=== PATIENT | male | born 1975 | race Caucasian/White ===

== ENCOUNTER 2016-10-01 09:51 | Emergency (ER) | payer MEDICAID ==
[2016-10-01] MEDS ORDERED: ONDANSETRON HCL IV 4 MG/2 ML VIAL IV ONE (10:20)
[2016-10-01] MEDS ORDERED: 0.9 % SODIUM CHLORIDE 1,000 ML BAG IV ONE (10:20)
[2016-10-01 10:34] LABS: BASO % 0.2 % (0-6); EOS % 1.9 % (0-6); GRAN % 56.9 % (47-80); HEMATOCRIT 44.7 % (42.0-52.0); HEMOGLOBIN 14.9 gm/dl (14.0-18.0); LYMPH % 31.3 % (16-45); MEAN CELL VOLUME 87.6 fl (81-97); MEAN CORPUSCULAR HEMOGLOBIN 29.2 pg (27-33); MEAN CORPUSCULAR HGB CONC 33.3 g/dl (32-36); MEAN PLATELET VOLUME 10.2 fl (7.4-10.4); MONO % 9.7 % (0-9); PLATELET COUNT 371 K/uL (130-400); RED CELL DISTRIBUTION WIDTH 13.3 % (11.5-14.5); WHITE BLOOD COUNT W/O DIFF 10.5 K/uL (4.2-12.2)
[2016-10-01 10:46] LABS: ANION GAP 5.3 (7-16); BLOOD UREA NITROGEN 16 mg/dL (9-20); CARBON DIOXIDE 29.7 mmol/L (22-30); CREATININE 0.9 mg/dL (0.66-1.25); EST GLOMERULAR FILTRATION RATE > 60 ml/min; GLUCOSE,RANDOM 132 mg/dL (70-110)
--- NOTE | 2016-10-01 10:48 | Emergency Department Record ---
History of Present Illness - General Chief complaint: Dental Stated complaint: BLEEDING FROM TONSILS Time Seen by Provider: 10/01/16 10:16 Source: Patient, RN notes reviewed - History of Present Illness Initial comments: Patient had an asthma atack and start coughing and coughed up blood. He had a Tand A done 5 days ago at [facility] and his right tonsil was bleeding and where the blood was coming from. His inhaler at home helped his breathing. No active bleeding now but he has a clot on the right tonsil. Onset/Timin -: Minutes(s) Improves with: None Worsens with: None - Related Data Home Medications Medication Instructions Recorded Confirmed Last Taken Citalopram Hydrobromide [Celexa] 40 mg PO QD tab 10/12/15 10/01/16 10/01/16 Lisinopril 40 mg PO QD tab 10/12/15 10/01/16 10/01/16 Amoxicillin [Amoxil] 20 ml PO Q8H 10/01/16 10/01/16 10/01/16 Cholecalciferol (Vitamin D3) 1,000 unit PO DAILY 10/01/16 10/01/16 09/30/16 [Vitamin D3] Docusate Sodium [Colace] 100 mg PO DAILY 10/01/16 10/01/16 09/24/16 Fluticasone Propionate [Flonase] 2 spray EACH NARES DAILY 10/01/16 10/01/16 Oxycodone HCl 10 mg PO Q4H 10/01/16 10/01/16 10/01/16 Trazodone HCl 50 mg PO QHS PRN 10/01/16 10/01/16 Unknown Allergies Allergy/AdvReac Type Severity Reaction Status Date / Time acetaminophen [From [place]] AdvReac HYPERSENSIT Verified 02/17/15 15:12 IVITY hydrocodone bitartrate AdvReac HYPERSENSIT Verified 02/17/15 15:12 [From [place]] IVITY Opioids - Morphine Analogues AdvReac RAPID Verified 10/27/15 13:18 HEART RATE Travel Screening - Travel/Exposure Within Last 30 Days Have you traveled within the last 30 days?: No - Travel/Exposure Within Last Year Have you traveled outside the [place] in the last year?: No - Additonal Travel Details Have you been exposed to anyone with a communicable illness?: No - Travel Symptoms Symptom Screening: None Review of Systems Reviewed: No additional complaints except as noted below Constitutional: Reports: As per HPI. Denies: Chills, Fever, Malaise, Night sweats, Weakness, Weight change Eyes: Reports: As per HPI. Denies: Eye discharge, Eye pain, Photophobia, Vision change ENT: Reports: As per HPI. Denies: Congestion, Dental pain, Ear pain, Epistaxis , Hearing loss, Throat pain Respiratory: Reports: As per HPI. Denies: Cough, Dyspnea, Hemoptysis, Stridor, Wheezes Cardiovascular: Reports: As per HPI. Denies: Arrhythmia, Chest pain, Dyspnea on exertion, Edema, Murmurs, Orthopnea, Palpitations, Paroxysmal nocturnal dyspnea, Rheumatic Fever, Syncope Endocrine: Reports: As per HPI. Denies: Fatigue, Heat or cold intolerance, Polydipsia, Polyuria Gastrointestinal: Reports: As per HPI. Denies: Abdominal pain, Constipation, Diarrhea, Hematemesis, Hematochezia, Melena, Nausea, Vomiting Genitourinary: Reports: As per HPI. Denies: Dysuria, Frequency, Hematuria, Incontinence, Retention, Testicular pain, Testicular mass, Urgency Musculoskeletal: Reports: As per HPI. Denies: Arthralgia, Back pain, Gout, Joint swelling, Myalgia, Neck pain Skin: Reports: As per HPI. Denies: Bruising, Change in color, Change in hair/ nails, Lesions, Pruritus, Rash Neurological: Reports: As per HPI. Denies: Abnormal gait, Confusion, Headache, Numbness, Paresthesias, Seizure, Tingling, Tremors, Vertigo, Weakness Psychiatric: Reports: As per HPI. Denies: Anxiety, Auditory hallucinations, Depression, Homicidal thoughts, Suicidal thoughts, Visual hallucinations Hematological/Lymphatic: Reports: As per HPI. Denies: Anemia, Blood Clots, Easy bleeding, Easy bruising, Swollen glands Past Medical History - SOCIAL HISTORY Smoking Status: Never smoker Alcohol Use: Rare Drug Use: None - RESPIRATORY Hx Respiratory Disorders: No Hx Asthma: Yes - CARDIOVASCULAR Hx Cardio Disorders: No Hx Hypertension: Yes - NEURO Hx Neuro Disorders: No - GI Hx GI Disorders: No - Hx Genitourinary Disorders: No - ENDOCRINE Hx Endocrine Disorders: No - MUSCULOSKELETAL Hx Musculoskeletal Disorders: No - PSYCH Hx Psych Problems: Yes Hx Anxiety: Yes Hx Depression: Yes - HEMATOLOGY/ONCOLOGY Hx Hematology/Oncology Disorders: No Family Medical History Any Significant Family History?: No Hx Alcohol Use: Grandparents Hx Diabetes: Father, Mother Hx HTN: Mother Physical Exam - General General Appearance: Alert, Oriented x3, Cooperative, No acute distress - Head Head exam: Normal inspection - Eye Eye exam: Normal appearance, PERRL Pupils: Normal accommodation - ENT ENT exam: Normal exam, Mucous membranes moist, Normal external ear exam, Normal orophraynx, TM's normal bilaterally Ear exam: Normal external inspection. negative: External canal tenderness Nasal Exam: Normal inspection. negative: Discharge, Sinus tenderness Mouth exam: Normal external inspection, Tongue normal Teeth exam: Normal inspection. negative: Dental caries Throat exam: Other (clot on the right tonsil , No active bleeding). negative: Tonsillar erythema, Tonsillar exudate - Neck Neck exam: Normal inspection, Full ROM. negative: Tenderness - Respiratory Respiratory exam: Normal lung sounds bilaterally. negative: Respiratory distress - Cardiovascular Cardiovascular Exam: Regular rate, Normal rhythm, Normal heart sounds - GI/Abdominal GI/Abdominal exam: Soft, Normal bowel sounds. negative: Tenderness - Rectal Rectal exam: Deferred - exam: Deferred - Extremities Extremities exam: Normal inspection, Full ROM, Normal capillary refill. negative: Tenderness - Back Back exam: Reports: Normal inspection, Full ROM. Denies: Muscle spasm, Rash noted, Tenderness - Neurological Neurological exam: Alert, Normal gait, Oriented X3, Reflexes normal - Psychiatric Psychiatric exam: Normal affect, Normal mood - Skin Skin exam: Dry, Intact, Normal color, Warm Course Vital Signs 10/01/16 10:28 Temperature 97.9 F Pulse Rate [ 59 L Pulse Ox Probe] Respiratory 20 Rate Blood Pressure 90/64 [Left Arm] Pulse Ox 96 - Reevaluation(s) Reevaluation #1: No active bleeding and he feels much better and his hg is 14.9 10/01/16 11:44 10/01/16 11:45 Medical Decision Making - Lab Data Result diagrams: 10/01/16 10:10 10/01/16 10:10 Lab Results 10/01/16 Range/Units 10:10 WBC 10.5 (4.2-12.2) K/uL RBC 5.10 (4.40-5.70) M/uL Hgb 14.9 (14.0-18.0) gm/dl Hct 44.7 (42.0-52.0) % MCV 87.6 (81-97) fl MCH 29.2 (27-33) pg MCHC 33.3 (32-36) g/dl RDW 13.3 (11.5-14.5) % Plt Count 371 (130-400) K/uL MPV 10.2 (7.4-10.4) fl Gran % 56.9 (47-80) % Lymphocytes % 31.3 (16-45) % Monocytes % 9.7 H (0-9) % Eosinophils % 1.9 (0-6) % Basophils % 0.2 (0-6) % Disposition Clinical Impression: Hemorrhage of right tonsil, History of tonsillectomy Asthma Qualifiers: Asthma severity: mild intermittent Asthma complication type: with acute exacerbation Qualified Code(s): J45.21 - Mild intermittent asthma with (acute) exacerbation Disposition: Home, Self-Care Condition: (1) Good Instructions: Wound Dehiscence (ED) Additional Instructions: if more bleeding return to ED or go to ENT Dr. follow up with ENT in 5-6 days soone rif more bleeding Forms: Patient Portal Access Time of Disposition: 11:53
[2016-10-01] MEDS ORDERED: 0.9 % SODIUM CHLORIDE 1000ML 1,000 ML IV ONE (11:14)
== END 2016-10-01 12:03 | disposition home or self-care (01) ==
LOC: ER 09:51
DX: K91.840 Postprocedural hemorrhage of a digestive system organ or structure following a digestive system procedure (principal); J45.21 Mild intermittent asthma with (acute) exacerbation; Y83.8 Other surgical procedures as the cause of abnormal reaction of the patient, or of later complication, without mention of misadventure at the time of the procedure
CPT/HCPCS: 99284 ×2; 96374; 96361; 85025; 80048; J2405; J7030

== ENCOUNTER 2017-08-16 10:46 | Emergency (ER) | payer MEDICAID ==
[2017-08-16] MEDS ORDERED: MECLIZINE 25 MG TABLET PO ONE (10:55)
[2017-08-16] MEDS ORDERED: ONDANSETRON 4 MG ODT TABLET SL ONE (10:55)
--- NOTE | 2017-08-16 11:02 | Emergency Department Record ---
History of Present Illness - General Chief Complaint: Abdominal Pain Stated Complaint: DIZZY/ABDOMINAL PAIN Time Seen by Provider: 08/16/17 10:48 Source: Patient, Family Mode of Arrival: Ambulatory Limitations: No limitations - History of Present Illness Initial Comments: 42 yo male presents with about one hour of a room spinning sensation. He states he was sitting on the cough and turned his head to talk to his kids and developed a room spinning sensation with nausea. No headache, vision changes, speech changes, coordination changes, mental status changes. He states if he sits still the symptoms resolve only to return with head turning. No history of the same. No recent changes in his health or his medications. MD Complaint: Dizziness Onset/Timin -: Hour(s) Timing: Sudden onset Description: Nausea, "Room spinning" History of Same: No History of Trauma: No Severity: Moderate Improves With: Remaining still Worsens With: Position, Other (Turning head) Associated Symptoms: Other (nausea without vomiting) - [place] Coma Scale Eye Response: (4) Open spontaneously Motor Response: (6) Obeys commands Verbal Response: (5) Oriented [place] Total: 15 - Related Data Previous Rx's Medication Instructions Recorded Meclizine HCl [Antivert] 25 mg PO Q8H #20 tablet 08/16/17 Ondansetron [Zofran Odt] 4 mg PO Q8H #20 tab.rapdis 08/16/17 Allergies Allergy/AdvReac Type Severity Reaction Status Date / Time acetaminophen [From [place]] AdvReac HYPERSENSIT Verified 08/16/17 10:57 IVITY hydrocodone bitartrate AdvReac HYPERSENSIT Verified 08/16/17 10:57 [From [place]] IVITY Opioids - Morphine Analogues AdvReac RAPID Verified 08/16/17 10:57 HEART RATE Travel Screening - Travel/Exposure Within Last 30 Days Have you traveled within the last 30 days?: No Review of Systems Constitutional: Denies: Chills, Fever, Malaise, Weakness Eyes: Denies: Eye discharge, Eye pain, Photophobia, Vision change ENT: Denies: Congestion, Throat pain Respiratory: Denies: Cough, Dyspnea Cardiovascular: Denies: Chest pain, Syncope Endocrine: Denies: Fatigue Gastrointestinal: Reports: Nausea. Denies: Abdominal pain, Diarrhea, Vomiting Genitourinary: Denies: Dysuria, Frequency, Hematuria Musculoskeletal: Denies: Arthralgia, Back pain, Myalgia Skin: Denies: Bruising, Change in color, Rash Neurological: Reports: Vertigo. Denies: Abnormal gait, Confusion, Headache, Numbness, Tingling, Tremors, Weakness Psychiatric: Denies: Anxiety Hematological/Lymphatic: Denies: Easy bleeding, Easy bruising, Swollen glands Past Medical History - SOCIAL HISTORY Smoking Status: Never smoker Drug Use: None - RESPIRATORY Hx Respiratory Disorders: No Hx Asthma: Yes - CARDIOVASCULAR Hx Cardio Disorders: No Hx Hypertension: Yes - NEURO Hx Neuro Disorders: No - GI Hx GI Disorders: No - Hx Genitourinary Disorders: No - ENDOCRINE Hx Endocrine Disorders: No - MUSCULOSKELETAL Hx Musculoskeletal Disorders: No - PSYCH Hx Psych Problems: Yes Hx Anxiety: Yes Hx Depression: Yes - HEMATOLOGY/ONCOLOGY Hx Hematology/Oncology Disorders: No Family Medical History Hx Alcohol Use: Grandparents Hx Diabetes: Father, Mother Hx HTN: Mother Physical Exam - General General Appearance: Alert, Oriented x3, Cooperative, No acute distress Limitations: No limitations - Head Head exam: Atraumatic, Normocephalic, Normal inspection Head exam detail: negative: Abrasion, Contusion - Eye Eye exam: Normal appearance, PERRL, EOMI, Nystagmus (Nystagmus with leftward gaze that resolves quickly), Other (No vertical nystamus or rotational nystagmus ). negative: Conjunctival injection, Scleral icterus Pupils: Normal accommodation. negative: Irregular, Unequal - ENT ENT exam: Normal exam, Mucous membranes moist, Normal orophraynx, TM's normal bilaterally Ear exam: Normal external inspection Nasal Exam: Normal inspection Mouth exam: Normal external inspection Teeth exam: Normal inspection Throat exam: Normal inspection - Neck Neck exam: Normal inspection, Full ROM. negative: Tenderness - Respiratory Respiratory exam: Normal lung sounds bilaterally. negative: Respiratory distress - Cardiovascular Cardiovascular Exam: Regular rate, Normal rhythm, Normal heart sounds - Rectal Rectal exam: Deferred - exam: Deferred - Extremities Extremities exam: Normal inspection, Full ROM, Normal capillary refill. negative: Tenderness - Back Back exam: Reports: Normal inspection, Full ROM. Denies: Muscle spasm, Rash noted, Tenderness - Neurological Neurological exam: Alert, CN II-XII intact, Normal gait, Oriented X3, Reflexes normal, Other (Normal FTN, Normal tracking, No PND, No ataxia). negative: Altered, Motor sensory deficit - Psychiatric Psychiatric exam: Normal affect, Normal mood - Skin Skin exam: Dry, Intact, Normal color, Warm Course Vital Signs 08/16/17 10:49 Temperature 98.1 F Pulse Rate 72 Respiratory 18 Rate Blood Pressure 135/90 Pulse Ox 99 - Reevaluation(s) Reevaluation #1: The vitals were reviewed No acute changes The examination findings are consistent with a peripheral vertigo at this time with nystagmus, fatigues with keeping still, no other ongoing symptoms or abnormal symptoms on examination. 08/16/17 11:05 08/16/17 11:07 EKG 1101 NSR normal intervals, leftward axis, no ectopy, normal ST. No changes from prior EKG 02/17/15 08/16/17 11:35 The ;abs were reviewed No acute changes Epply Maneuver performed. 08/16/17 11:59 TSH resulted normal The patient reports a good response to the medications at this time We discussed home care and reasons to return to the ED Prescriptions sent to his pharmacy. Medical Decision Making - Lab Data Result diagrams: 08/16/17 10:50 08/16/17 10:50 Disposition Disposition: Discharge Clinical Impression: Vertigo Disposition: Home, Self-Care Condition: (1) Good Instructions: Vertigo (ED) Additional Instructions: Rest and stay well hydrated Return if worse, headache, any speck or vision changes or any new concerns Prescriptions: Meclizine HCl [Antivert] 25 mg PO Q8H #20 tablet Ondansetron [Zofran Odt] 4 mg PO Q8H #20 tab.rapdis Forms: Patient Portal Access Time of Disposition: 12:04 Quality - Quality Measures Quality Measures: N/A - Blood Pressure Screening Does Patient Have Any of the Following: Active Dx of HTN Blood Pressure Classification: Hypertensive Reading Systolic Measurement: 135 Diastolic Measurement: 90 Screening for High Blood Pressure: Patient Exclusion, Hx of HTN [[id number]]
[2017-08-16 11:07] LABS: BASO % 0.3 % (0-6); GRAN % 60.2 % (47-80); HEMATOCRIT 45.4 % (42.0-52.0); HEMOGLOBIN 14.9 gm/dl (14.0-18.0); LYMPH % 28.6 % (16-45); MEAN CELL VOLUME 88.3 fl (81-97); MEAN CORPUSCULAR HGB CONC 32.8 g/dl (32-36); MEAN PLATELET VOLUME 9.3 fl (7.4-10.4); MONO % 9.9 % (0-9); PLATELET COUNT 309 K/uL (130-400); RED BLOOD COUNT 5.14 M/uL (4.40-5.70); RED CELL DISTRIBUTION WIDTH 13.6 % (11.5-14.5); WHITE BLOOD COUNT W/O DIFF 7.1 K/uL (4.2-12.2)
[2017-08-16 11:21] LABS: BLOOD UREA NITROGEN 25 mg/dL (6-20); CREATININE 0.8 mg/dL (0.7-1.2); EST GLOMERULAR FILTRATION RATE > 60 mL/min
[2017-08-16 11:22] LABS: TOTAL PROTEIN 7.2 g/dL (6.6-8.7)
[2017-08-16 11:24] LABS: GLUCOSE,RANDOM 109 mg/dL (74-109)
[2017-08-16 11:26] LABS: ALB/GLOB RATIO 1.6 (1.1-1.8); ALBUMIN 4.4 g/dL (4.0-5.0); ALKALINE PHOSPHATASE 60 U/L (40-129); ALT/SGPT 24 U/L (<41); AST/SGOT 16 U/L (10.0-50.0)
[2017-08-16 11:37] LABS: THYROID STIMULATING HORMONE 1.72 uIU/mL (0.270-4.20)
== END 2017-08-16 12:10 | disposition home or self-care (01) ==
LOC: ER 10:46
DX: H81.392 Other peripheral vertigo, left ear (principal); H55.00 Unspecified nystagmus; R11.0 Nausea; R10.9 Unspecified abdominal pain; I10 Essential (primary) hypertension
CPT/HCPCS: 80053; 83735; 84443; 85025; 93005; 93010; 99284